=== PATIENT | male | born 1995 | race Caucasian/White ===

== ENCOUNTER 2017-04-03 11:40 | Emergency (ER) | payer MEDICAID, OTHER ==
[~2017-04-03] VITALS: Ht 167.6 cm; Wt 66.0 kg
[2017-04-03 11:59] VITALS: BP 133/82
== END 2017-04-03 13:09 | disposition home or self-care (01) ==
LOC: ER 12:53
DX: M26.19 Other specified anomalies of jaw-cranial base relationship (principal); F17.200 Nicotine dependence, unspecified, uncomplicated; Z88.0 Allergy status to penicillin
CPT/HCPCS: 99281